=== PATIENT | female | born 1955 | race Caucasian/White ===

== ENCOUNTER 2020-01-17 06:24 | Day surgery (SDC) | payer OTHER ==
[~2020-01-17] VITALS: Ht 160 cm; Wt 58.0 kg
[~2020-01-17 06:24] MED LIST: CALCIUM600 MG PO; CRUTCH1 EACH MISC; MAGNESIUM400 MG PO; MSM1000 M1 PO; MSM1000 MG PO; MULTI VITAMIN1 EACH PO; TRAMADOL HCL50 MG PO; TURMERIC500 M2 PO; TURMERIC500 MG PO; VITAMIN D5000 UNIT PO; VITAMIN K240 MCG PO
--- NOTE | 2020-01-17 07:51 | NUR ---
PT ALERT, ORIENTED AND SUPPORTED BY HER ABIGAIL. PT HERE FOR ROUTINE SCOPE, ALL QUESTONS ASKED ANSWERED. ABIGAIL TO WAIT IN RM. PT REQUESTED PRAYER WILL FOLLOW NEEDED
--- NOTE | 2020-01-17 08:08 | NUR ---
01/17/20 0808 Pat Friend 0800 PATIENT ARRIVES TO PACU SLEEPING, AWAKENS WITH VERBAL STIMULI. VERY DROWSY. BACK TO SLEEP WHEN NOT STIMULATED. RESP EVEN AND UNLABORED, NC AT 2 LITERS. 0805 PATIENT SLEEPING. AWAKENS WITH VERBAL STIMULI, THEN BACK TO SLEEP. RESP EVEN AND UNLABORED, NC OFF. ROOM AIR SATS 100%.
--- NOTE | 2020-01-17 09:04 | OR ---
[facility] [address], [place] [address] Signed DATE OF OPERATION: 01/17/2020 SURGEON: Fatimah Colbert MD PREOPERATIVE DIAGNOSES: 1. BRCA-2 positive. 2. Irritable bowel syndrome with intermittent diarrhea. POSTOPERATIVE DIAGNOSES: 1. A 3-4 mm sessile lesion, mid right colon. 2. Long redundant colon. PROCEDURE: Colonoscopy with hot biopsy. ESTIMATED BLOOD LOSS: None. INDICATIONS: Corona is a 64-year-old female, who was asked to see me for her 3rd colonoscopy. We know her family is positive for BRCA-2. Of course, that increases her risk of colon cancer. Consequently, she comes every 5 years. She has already undergone her prophylactic bilateral mastectomies with reconstruction. She also had a hysterectomy. She also describes irritable bowel syndrome with intermittent diarrhea. We took biopsies for her back in 2015 during her colonoscopy and they came back fine. She said she has been the same since I have seen her last. There is no family history currently of any colon cancer or polyps. In the office, I gave her a pamphlet on colonoscopy and we looked at that together along with the risks including, but not limited to gas bloating, crampy abdominal pain, bleeding, perforation requiring surgery, and missed diagnosis. We also reviewed the need for IV conscious sedation. She has done well with Versed and fentanyl in the past. However, she does get nauseated, so we gave her Phenergan in 2015 and worked out very nicely. Consequently, we wrote for that for today as well. She had expressed understanding and wished to proceed. DESCRIPTION OF OPERATIVE PROCEDURE: Corona was taken into our endoscopy suite and placed in the left lateral decubitus position. She was given 12.5 mg of Phenergan IV. After that, she received a total of 5 mg of Versed and 125 mcg of fentanyl to cover the case. A digital rectal exam was performed and this was unremarkable. The adult colonoscope was introduced and advanced under direct visualization of camera. Corona is quite small at 5 feet 3 inches at Electronically Signed By: FATIMAH COLBERT MD 01/17/20 0904 PATIENT NAME: CORONA SORTO OPERATIVE REPORT DATE OF : 53 REPORT #: [id number] PHYSICIAN: FATIMAH COLBERT MD PCP: BALDOMERO ENCARNACION DO REPORT IS CONFIDENTIAL AND NOT TO BE RELEASED WITHOUT AUTHORIZATION [facility] [address], [place] [address] Signed 130 pounds. She has very little fat. She has a long redundant colon and always takes extra sedation and abdominal compression in order to advance the scope, not only through the sigmoid and left colon, but she has a very long transverse colon as well. Once we finally got around hepatic flexure, had straightened the colon, the colonoscope then passed into the cecum quite readily. As always, her prep was quite excellent. We could easily see the appendiceal orifice and ileocecal valve. We had taken pictures throughout for photodocumentation. The scope was slowly withdrawn. She had an erythematous sessile lesion in mid right colon, which was probably fine. Nevertheless, we went ahead and just biopsied that for pathologic review. Otherwise no findings throughout the entire colon or rectum. Specifically, no other polyps and/or diverticula. Upon retroflexion of scope, there was no additional pathology noted above the anal canal. After this, the gas was suctioned out and the colonoscope removed. Corona tolerated the procedure quite well. RECOMMENDATIONS: I will see Corona back in my office in 7 to 14 days to review her results. Fatimah Colbert MD [facility] /[id number] cc: DO Hawa Yee MD Andrew L Bower, MD Copies: BALDOMERO ENCARNACION PATRICIA J MD BOWER, ANDREW L MD ~ Electronically Signed By: FATIMAH COLBERT MD 01/17/20 0904 PATIENT NAME: CORONA SORTO OPERATIVE REPORT DATE OF : 53 REPORT #: [id number] PHYSICIAN: FATIMAH COLBERT MD PCP: BALDOMERO ENCARNACION DO REPORT IS CONFIDENTIAL AND NOT TO BE RELEASED WITHOUT AUTHORIZATION
--- NOTE | 2020-01-18 15:04 | PATH ---
[facility] [address] [place], [place] [address] Signed SPECIMEN(S): A MID TRANSVERSE POLYP SPECIMEN SOURCE: A. MID TRANSVERSE POLYP CLINICAL HISTORY: Colonoscopy. Family history of colon CA. MICROSCOPIC DESCRIPTION: Histologic sections of all submitted blocks are examined by light microscopy. These findings, together with the gross examination, support the pathologic diagnosis. FINAL PATHOLOGIC DIAGNOSIS: Colon, mid transverse, polyp, polypectomy: - Fragments of cauterized colonic mucosa with focal benign mucosal lymphoid aggregate. - Negative for high-grade dysplasia or malignancy. COMMENT: One of the two fragments is severely cauterized. Low-grade dysplasia is favored to be absent, however, definitive histologic evaluation is prevented by the cautery artifact. If clinical concern remains, a repeat biopsy is recommended. NAL:cml:C2NR GROSS DESCRIPTION: The specimen, labeled "CG, mid transverse colon polyp," is received in formalin and consists of one curry soft tissue fragment that measures 0.1 cm in greatest dimension. The specimen is entirely submitted in cassette (A1). JS (under the direct supervision of a pathologist) The Gross Description was prepared using a voice recognition system. The report was reviewed for accuracy; however, sound-alike word errors, addition and/or deletions may occur. If there is any question about this report, please contact Client Services. PERFORMING LABORATORY: The technical component was performed by [facility], [address] [place] [id number] (Radio Board Operator Announcer: Loida Ivory MD; CLIA# [id number]). Professional interpretation was performed by [facility], [facility], [address] [facility]. 107, PATIENT NAME: CORONA SORTO PATHOLOGY DATE OF : 53 REPORT #: [id number] PHYSICIAN: KETAN PATHOLOGY PCP: BALDOMERO ENCARNACION DO REPORT IS CONFIDENTIAL AND NOT TO BE RELEASED WITHOUT AUTHORIZATION [facility] [address] [facility] [place], [place] [address] Signed [place] [address] (CLIA# [id number]). Diagnostician: Mallika Flynn MD Pathologist Electronically Signed 01/18/2020 Copies: ~ PATIENT NAME: CORONA SORTO PATHOLOGY DATE OF : 53 REPORT #: [id number] PHYSICIAN: KETAN PATHOLOGY PCP: BALDOMERO ENCARNACION DO REPORT IS CONFIDENTIAL AND NOT TO BE RELEASED WITHOUT AUTHORIZATION
== END 2020-01-17 09:10 | disposition home or self-care (01) ==
LOC: OPS 06:24 → DS 06:24 → OPS 06:45 → DS 06:45 → OPS 09:10
PROVIDERS: ATTEND Colon & Rectal Surgery
PROC: 0DBL8ZX Excision of Transverse Colon, Via Natural or Artificial Opening Endoscopic, Diagnostic (ICD-10-PCS; principal; 2020-01-17 06:45)
DX: K63.5 Polyp of colon (principal); K58.0 Irritable bowel syndrome with diarrhea; J45.909 Unspecified asthma, uncomplicated; G43.909 Migraine, unspecified, not intractable, without status migrainosus; Z80.0 Family history of malignant neoplasm of digestive organs; Z88.8 Allergy status to other drugs, medicaments and biological substances; Z88.5 Allergy status to narcotic agent; Z79.899 Other long term (current) drug therapy
CPT/HCPCS: 99153; G0500; J2550; J7121

== ENCOUNTER 2022-09-28 17:43 | Observation (INO) | payer MEDICARE ==
[~2022-09-28] VITALS: Ht 160 cm; Wt 58.2 kg
--- OUTSIDE RECORDS SUMMARY | ~2022-09-28 | XMS | Continuity of Care Document ---
Demographics + + + | Address | [address] | | | [place] [address] | + + + | Preferred Language | Unknown | + + + | Marital Status | | + + + | Yarsanism Affiliation | Unknown | + + + | Race | White | + + + | Ethnic Group | Unknown | + + + Author + + + | Author | [facility] | + + + | Organization | [facility] | + + + | Address | [address] | | | [place] [address] | + + + | Phone | | + + + Care Team Providers + + + + | Care Consolidator Name | Role | Phone | + + + + Unavailable | Unavailable | + + + + Allergies and Intolerances + + + + + | date | description | facility | type | + + + + + | (no date) | codeine | [facility] | (unknown) | + + + + + | (no date) | hydrocodone | [facility] | (unknown) | + + + + + | (no date) | oxycodone | [facility] | (unknown) | + + + + + | (no date) | propoxyphene | [facility] | (unknown) | + + + + + | (no date) | acetaminophen | [facility] | (unknown) | + + + + + | (no date) | albuterol | [facility] | (unknown) | + + + + + | (no date) | tetanus and | [facility] | (unknown) | | | diphtheria toxoids | | | + + + + + Encounters No information. Functional Status No information. Immunizations No information. Medications No information. Problems No information. Procedures No information. Results/Labs No information. Social History No information. Vital Signs No information."
[2022-09-28] MEDS ORDERED: ZINC10 MG PO (18:06)
--- NOTE | 2022-09-28 20:35 | NUR ---
REPORT RECEIVED FROM MATTHEW PASTRANA, QUESTIONS ANSWERED, pt AWAKE AND IN ROOM. PAU HENSLEY REMAINS IN ROOM TO COMPLETE ADMISSION. DR TORO ALSO AT RN STATION AND VERBAL ORDER FOR 81MG PO ENTERIC COATED ASPIRIN DAILY TO START TOMORROW ORDERED, READ BACK TO VERIFY.
[2022-09-28 20:36] VITALS: BP 120/96
--- NOTE | 2022-09-28 20:40 | NUR ---
pt ARRIVES TO RI VIA STRETCHER WITH DIVYA PASTRANA. pt AMBULATORY TO RESTROOM, GAIT STEADY. VSS. pt CONTINUES TO COMPLAIN OF RIGHT HAND NUMBNESS. BLANKET CUTTER HAND PLACED, HR 53, SINUS BRADYCARDIA. WARM BLANKET PROVIDED. ORIENTATION TO ROOM AND CALL LIGHT PROVIDED. CALL LIGHT AND CELL PHONE IN REACH. ABIGAIL TOOK pt'S PURSE HOME.
--- NOTE | 2022-09-28 21:42 | NUR ---
ASSESSMENT COMPLETE, NO SCHEDULED MEDS. pt PASSED SWALLOW EVAL, REMAINS ON RA. RR EVEN AND UNLABORED. NO DISTRESS NOTED. NIH STROKE ASSESSMENT COMPLETE SEE INTERVENTION. TELE REMAISN IN PLACE, SINUS TEODORA. CALL LIGHT IN REACH.
--- NOTE | 2022-09-29 00:19 | NUR ---
ROUNDED ON pt, pt RESTING IN BED WITH EYES CLOSED AND ON RA. RR EVEN AND UNLABORED. NO DISTRESS NOTED. CALL LIGHT IN REACH.TELE #[address], SHOWS SINUS TEODORA-HR 50.
[2022-09-29 01:29] VITALS: BP 110/72
--- NOTE | 2022-09-29 01:34 | NUR ---
ASSESSMENT COMPLETE, NO ACUTE CAHNGES TO pt, pt A/OX4 DENEIS PAIN AND NAUSEA. VSS, pt REMAINS ON RA. RR EVEN AND UNLABORED WITH NO DISTRESS. TELE REMAINS IN PLACE, SINUS TEODORA WITH HR IN THE 50'S. pt UP SBA, VERY STEADY ON FEET. NO NEEDS VERBALIZED, CALL LIGHT IN REACH.
--- NOTE | 2022-09-29 05:15 | NUR ---
rounded on pt, pt resting in bed with eyes closed and on ra. rr even and unlabored, no distress noted. call light in reach. will continue to monitor.
[2022-09-29 06:38] VITALS: BP 118/64
--- NOTE | 2022-09-29 07:00 | NUR ---
neuro check complete, no acute changes from previous assessment. pt reports numbness remains in right side of face and right hand, but improving. pt a/ox3, call light in reach.
--- NOTE | 2022-09-29 07:20 | NUR ---
REPORT RECEIVED ON PT - RESTING IN BED AWAKE, DENIES NEEDS. NO WORSENING SYMPTOMS. CALL LIGHT IN REACH.
--- NOTE | 2022-09-29 07:54 | NUR ---
PATIENT IN BED. ALERT AND ORIENTED X4. DISCUSSED NEEDS FOR DISCHARGE. LIVES IN A HOUSE WITH SPOUSE, RANJIT. STATES HE IS ABLE TO PROVIDE TRANSPORTATION AT DISCHARGE. DOES HAVE STAIRS TO GET INTO HER HOME, BUT STATES SHE IS NOT HAVING ANY ISSUES WITH AMBULATION. BIGGEST CONCERN IS NUMBNESS THAT IS PERSISTANT IN HER RIGHT UPPER EXTREMITY. NO FINANCIAL HARDSHIPS OR INABILITY TO OBTAIN FOOD, MEDICATIONS OR OTHER NEEDS. REMAINS ACTIVE PRIOR TO ADMISSION, DISCUSSES HER CARE OF HORSES AT HOME. INFORMED OF CONTINUED TESTING LIKELY TODAY. PATIENT ANTICIPATES DISCHARGE BACK TO HOME WITH SPOUSE. NO NEEDS ANTICIPATED FOR DISCHARGE AT THIS TIME.
--- NOTE | 2022-09-29 08:54 | NUR ---
ASSESSMENT COMPLETE - PT RESTING IN BED WITH AT BEDSIDE. RIGHT EYE AND HAND NUMBNESS REMAIN, SLIGHT TOUNGE DEVIATION TO RIGHT NOTED. PT DENIES FEELING "WORSE". POC ON ECHO AND MRI TODAY DISCUSSED. DENIES FURTHER NEEDS.
[2022-09-29 09:18] VITALS: BP 110/61
--- NOTE | 2022-09-29 10:00 | NUR ---
PT OFF FLOOR TO MRI.
--- NOTE | 2022-09-29 11:26 | NUR ---
PATIENT GOT UP THIS MORNING WHILE I WAS IN THE ROOM SHE BRUSHED HER TEETH AND WASHED HER FACE. SHE ALSO SET UP IN HER CHAIR FOR BREAKFAST.
--- NOTE | 2022-09-29 11:28 | NUR ---
RN ROUNDING ON PT - RESTING IN BED VISITING WITH AND GUEST. DENIES NEEDS AT THIS TIME, CALL LIGHT IN REACH.
[2022-09-29] MEDS ORDERED: LO-DOSE ASPIRIN81 MG PO (12:03)
--- NOTE | 2022-09-29 13:18 | NUR ---
PT IN BED WITH AT BEDSIDE. BOTH DENIED NEEDS. PT EXPRESSED HOPE FOR POSITIVE OUTCOME OF PENDING TESTS. PRAYED.
[2022-09-29 13:36] VITALS: BP 111/59
[2022-09-29 14:27] VITALS: BP 115/43
--- NOTE | 2022-09-29 14:30 | NUR ---
THIS RN TO ROOM TO ASSIST WITH DISCHARGE. ECHO COMPLETED. PT REPORTS SHE IS READY FOR DISCHARGE. IV DC'D PER PROTOCOL. GAUZE AND COBAN APPLIED. VITAL SIGNS STABLE. PT UP TO DRESS SELF, NO ASSISTANCE NEEDED. DISCHARGE INSTRUCTIONS REVIEWED WITH PT WHO VERBALIZES UNDERSTANDING OF INSTRUCTIONS, MEDICATIONS AND FOLLOW UP AND STATES HER QUESTIONS HAVE BEEN ANSWERED. PT STATES SHE WILL CALL WHEN READY TO BE WHEELED OUT TO HER CAR. NO ADDIITONAL REQUESTS OR CONCERNS. PTS PRIMARY RN UPDATED.
--- NOTE | 2022-09-30 16:43 | EKG ---
[facility] [address] [facility] [place], [place] [address] Signed Sinus bradycardia Left axis deviation Abnormal ECG No previous ECGs available Confirmed by DELANEY SANZ MD ([id number]) on 09/30/2022 4:42:45 PM Electronically Signed By: DELANEY SANZ 09/30/22 1643 PATIENT NAME: CORONA SORTO Electrocardiogram DATE OF : 53 PHYSICIAN: DELANEY SANZ REPORT #: [id number] REPORT IS CONFIDENTIAL AND NOT TO BE RELEASED WITHOUT AUTHORIZATION
== END 2022-09-29 14:43 | disposition home or self-care (01) ==
LOC: ED 17:43 → MS 17:45
PROVIDERS: ADMIT Internal Medicine; ATTEND Internal Medicine
DX: R20.0 Anesthesia of skin (principal); R51.9 Headache, unspecified; M81.0 Age-related osteoporosis without current pathological fracture; Z79.899 Other long term (current) drug therapy; Z88.5 Allergy status to narcotic agent; Z88.7 Allergy status to serum and vaccine; Z88.8 Allergy status to other drugs, medicaments and biological substances; R29.701 NIHSS score 1
CPT/HCPCS: 36415; 70450; 70496; 70498; 70551; 71045; 80048; 80053; 84484; 85025; 85610; 85730; 93005; 93010; 93306; 99285 25; G0378; Q9967